=== PATIENT | male | born 1955 | race Caucasian/White ===

== ENCOUNTER 2021-07-11 17:37 | Inpatient (IN) | payer MEDICARE, OTHER ==
[~2021-07-11] VITALS: Ht 180.3 cm; Wt 68.5 kg
[2021-07-11] MEDS ORDERED: ASPI81TA31 PO (17:55)
[2021-07-11] MEDS ORDERED: METF-440 PO (17:55)
[2021-07-11] MEDS ORDERED: ATOR40TA PO (17:55)
[2021-07-11] MEDS ORDERED: MULT-594 PO (17:55)
[2021-07-11] MEDS ORDERED: BENA40TA8 PO (17:55)
[2021-07-11] MEDS ORDERED: METF-442 PO (17:55)
[2021-07-11] MEDS ORDERED: ACCUCHECK (17:55)
[2021-07-11] MEDS ORDERED: SITA100T PO (17:55)
--- NOTE | 2021-07-11 17:59 | NUR ---
Patient is eating dinner with good appetite. Patient is now medically cleared by Dr Lobo for psych admission to geriatric mental health unit.
--- NOTE | 2021-07-11 18:15 | NUR ---
Gps/Supervisor Fine Grading-Received report received from Kimmie CANALES Rn will have patient eat dinner in ER before bringing patient over MHU
[2021-07-12] MEDS ORDERED: TEMAZEPAM 7.5 MG CAPSULE PO PRN (03:15)
[2021-07-12] MEDS ORDERED: MAGNESIUM HYDROXIDE 30 ML LIQUID UDC PO PRN (03:15)
[2021-07-12] MEDS ORDERED: MAG HYDROX/AL HYDROX/SIMETH 30 ML LIQUID UDC PO PRN (03:15)
[2021-07-12] MEDS: ACETAMINOPHEN 325 MG TABLET PO PRN (03:19)
--- NOTE | 2021-07-12 04:40 | NUR ---
ADMIT NOTE Patient is a 65 yr old male admitted from [facility] to [facility] for Danger to Self. Patient according to the hold was placed on a 5150 by officers called to the scene for having a knife to his neck and verbalizing suicidal ideation, asking officers to shoot him upon exiting his home. Patient has a history of Major depression, Diabetes Mellitus, Hypertension, CKD. Alert and oriented to name, time, situation however has poor insight into current condition and stated he does not belong here, that he should be by now. Patient denies suicidal thoughts or intent at this time placed on 15 minute checks times twenty-four hours for moderate risk, plan of care in place as well as safety measures and suicidal precautions. Patient rights handbook provided.
[2021-07-12 07:30] VITALS: BP 116/59
[2021-07-12 07:31] LABS: BILIRUBIN,TOTAL 0.8 mg/dL (0.2-1.0); TOTAL PROTEIN, SERUM 8.1 g/dL (6.4-8.2)
--- NOTE | 2021-07-12 10:30 | NUR ---
PT RECEIVED AMBULATING UNIT HALLWAY. PLEASANT UPON APPROACH AND COMPLIANT WITH CARE. PT ADMITS TO FEELINGS OF DEPRESSION, BUT DENIES SUICIDAL IDEATIONS AT THIS TIME. THERAPEUTIC COMMUNICATION PROVIDED.
[2021-07-12] MEDS: SERTRALINE HCL 50 MG TABLET PO SCH (13:02)
[2021-07-12 16:46] VITALS: BP 140/64
[2021-07-12] MEDS: QUETIAPINE FUMARATE 25 MG TABLET PO SCH (20:19)
[2021-07-12 20:34] VITALS: BP 131/81
--- NOTE | 2021-07-13 07:36 | NUR ---
Patient approached the nursing station stating he was feeling suicidal and had made attempts to snort paper. Psychiatrist was paged, awaiting call back, endorsed to a.m. nurse to follow up. Patient then proceeded to bang his head against the wall, required nursing interventions to have him sit down in a shwetha-chair by the nursing station for observation.
--- NOTE | 2021-07-13 07:57 | NUR ---
PT NOTED VERY DEPRESSED THIS MORNING. STATED HE "TRIED TO KILL MYSELF WITH SOME PAPER" IN ORDER TO SUFFOCATE HIMSELF. STATES HE WANTS TO AND "WILL DO IT AGAIN UNTIL I MAKE IT." WHEN ASKED WHAT IS MAKING HIM FEEL LIKE HE WANTS TO HURT HIMSELF, PT RESPONDED "JUST BEING ALIVE MAKES ME DEPRESSED. I JUST WANT TO ." FREQUENT VISUAL MONITORING DONE. CALLED DR. CHIANG AWAITING CALL BACK.
--- NOTE | 2021-07-13 08:18 | NUR ---
SPOKE TO DR. CHIANG WITH ORDER FOR 1:1 SITTER FOR SAFETY. PT CONTINUES TO VERBALIZE SUICIDAL IDEATIONS, SAYING "I'M REALLY NOT GONNA LEAVE THIS PLACE ALIVE, YOU KNOW?" [employer]LECT[employer]ODU[employer] SALES ENGINEER MADE AWARE.
--- NOTE | 2021-07-13 10:58 | NUR ---
Pt. verbalizes SI with no specific plan. Pt. affect is hopeless, helpless, depressed. Dr. Patton is aware of patient suicidal ideations, order 1:1 sitter was placed.
--- NOTE | 2021-07-13 11:53 | NUR ---
SW Note Pt presents with appropriate affect and depressed mood. Pt is agitated and guarded during assessment. Pt is able to maintain meaningful conversation. Pt states the reason for his hospitalization is that he tried to kill himself due to stress related to conflict with his neighbor and difficulty obtaining medication refills at his pharmacy. Pt explained his stressors built up and caused him to want to end his life. Pt reports feelings of hopelessness and worthlessness. Pt reflects that killing himself was "not that good idea." Pt explains he is "three-quarters dark and one-quater light" explaining he is still having thoughts of wanting to . Pt elaborates he is "three-quarters" still feeling like he wants to and "one-quarter" sees reasons to continue living. Pt continues to report thoughts of suicide and denies any current intent or plan at this time. Pt initially declined counseling resources or psychiatrist referrals and later agreed to referrals. Pt appears disheveled and unkempt. Pt denies ETOH use. Pt denies visual/auditory hallucinations.
--- NOTE | 2021-07-13 11:59 | NUR ---
CANDIDO Initial Discharge Note Pt currently resides at home at [address], [address], [place] [address] ([phone]). Pt reports he wants to return home after discharge. Pt reports he is estranged from his siblings and do not want him to know about his hospitalization or be involved in his care. CANDIDO will continue to work [facility] pt and MD to ensure a safe and proper discharge plan.
[2021-07-13] MEDS: SERTRALINE HCL 50 MG TABLET PO SCH (12:12)
--- NOTE | 2021-07-13 14:06 | NUR ---
Pt. is [id number] awake in his room. A/O X 3 to person, place, environment. Pt. affect is hopeless, helpless, depressed, low energy. Pt. verbalizes suicidal thoughts with no specific plan "I don't want to live anymore. I'm done." Pt. ambulates with walker. Continent of bladder and bowel. Pt. is encourage to verbalize feelings and emotions. Fall and safety precautions implemented.
[2021-07-13 15:47] VITALS: BP 139/74
--- NOTE | 2021-07-13 16:13 | NUR ---
REASSESSED PT AT THIS TIME. CONTINUES TO VERBALIZE THAT HE HAS "NOTHING TO LIVE FOR", BUT REGRETS TRYING TO KILL HIMSELF THIS AM. PT STATES HE WILL "TRY" NOT DO HURT HIMSELF AGAIN, BUT HE "CAN'T MAKE ANY PROMISES" AND CANNOT FULLY CONTRACT FOR SAFETY AT THIS TIME. WILL CONTINUE TO MONITOR. CONTINUES TO BE PLEASANT AND COMPLIANT WITH MEDICATIONS AND CARE.
[2021-07-13] MEDS: METFORMIN HCL 500 MG TABLET PO SCH (17:37)
[2021-07-13 20:00] VITALS: BP 142/84
[2021-07-13] MEDS: ATORVASTATIN 10 MG TABLET PO SCH (20:07)
[2021-07-13] MEDS: QUETIAPINE FUMARATE 25 MG TABLET PO SCH (20:08)
[2021-07-14] MEDS: ACETAMINOPHEN 325 MG TABLET PO PRN (05:39)
--- NOTE | 2021-07-14 06:14 | NUR ---
Pt asleep at this time, no s/s of distress. 1:1 sitter at bedside. Compliant with meds, cooperative with care during the shift. 14-day hold signed by Dr. Patton, copy provided to pt. Said doctor recommended d/c of sitter at the end of this shift. Observed to be easily agitated and anxious but redirectable. Overall pleasant and able to interact appropriately with others. Denies wanting to hurt himself at this time. Will continue to monitor. Safety precautions remain in place.
[2021-07-14 07:38] VITALS: BP 123/76
--- NOTE | 2021-07-14 08:00 | NUR ---
rec d patient in bed arousable to verbal stimuli no anger issues noted 1;1 sitters d/c d.P{atient sat up At bedside for breakfast, oral intake qs. med compliant. Up in halls with fww for safety gait steady no outbursts
[2021-07-14] MEDS: METFORMIN HCL 500 MG TABLET PO SCH ×2 (08:34→16:52)
[2021-07-14] MEDS: MULTIVITAMINS,THERAPEUTIC TABLET PO SCH (08:34)
[2021-07-14] MEDS: SERTRALINE HCL 50 MG TABLET PO SCH (08:34)
[2021-07-14] MEDS: ASPIRIN 81 MG TAB.CHEW PO SCH (08:34)
[2021-07-14] MEDS: BENAZEPRIL HCL 10 MG TABLET PO SCH (08:36)
[2021-07-14] MEDS: GLUCERNA SHAKE VANILLA 237 ML CAN PO SCH ×2 (10:33→16:53)
[2021-07-14 15:59] VITALS: BP 129/67
--- NOTE | 2021-07-14 18:14 | NUR ---
patient has been visible on unit with no peer interaction back and forth to his room, njo s/s of hypo glycemia. denies SI . cONTINUE TO MONITOR FOR SAFETY.
[2021-07-14 20:10] VITALS: BP 142/58
[2021-07-14] MEDS: LORAZEPAM 0.5 MG TABLET PO PRN (20:43)
[2021-07-14] MEDS: ATORVASTATIN 10 MG TABLET PO SCH (20:43)
[2021-07-14] MEDS: QUETIAPINE FUMARATE 25 MG TABLET PO SCH (20:43)
[2021-07-15 08:00] VITALS: BP 135/72
--- NOTE | 2021-07-15 08:00 | NUR ---
patient received awake and oriented times two still forgetful and confused.Patient pacing noble s with fFWW in and out of his room, med compliant oral intake good. Continue to monitor for safety
[2021-07-15] MEDS: GLUCERNA SHAKE VANILLA 237 ML CAN PO SCH ×2 (09:00→17:34)
[2021-07-15] MEDS: BENAZEPRIL HCL 10 MG TABLET PO SCH (09:28)
[2021-07-15] MEDS: ASPIRIN 81 MG TAB.CHEW PO SCH (09:28)
[2021-07-15] MEDS: MULTIVITAMINS,THERAPEUTIC TABLET PO SCH (09:29)
[2021-07-15] MEDS: SERTRALINE HCL 50 MG TABLET PO SCH (09:29)
[2021-07-15] MEDS: METFORMIN HCL 500 MG TABLET PO SCH ×2 (09:32→17:33)
--- NOTE | 2021-07-15 15:29 | NUR ---
Firearms Report: Pesticide Use Medical Coordinator completed and submitted a [employer] firearms report for 5150 danger to self certifications. A copy of report has been placed in patient chart.
[2021-07-15 15:59] VITALS: BP 128/81
--- NOTE | 2021-07-15 18:31 | NUR ---
STILL RESISTIVE MEDICATION IN AND OUT OF DAY ROOM NO si or c/o harm to anyone
[2021-07-15 19:58] VITALS: BP 131/63
[2021-07-15] MEDS: QUETIAPINE FUMARATE 25 MG TABLET PO SCH (20:32)
[2021-07-15] MEDS: ATORVASTATIN 10 MG TABLET PO SCH (20:32)
[2021-07-16 08:00] VITALS: BP 125/72
[2021-07-16 08:33] LABS: HEMATOCRIT 42.5 % (36.7-47.1); MEAN CORPUSCULAR HEMOGLOBIN 33.7 uug (23.8-33.4); PLATELET COUNT (AUTO) 232 K/uL (152-348)
[2021-07-16] MEDS: BENAZEPRIL HCL 10 MG TABLET PO SCH (08:33)
[2021-07-16] MEDS: MULTIVITAMINS,THERAPEUTIC TABLET PO SCH (08:34)
[2021-07-16] MEDS: SERTRALINE HCL 50 MG TABLET PO SCH (08:34)
[2021-07-16] MEDS: METFORMIN HCL 500 MG TABLET PO SCH ×2 (08:34→18:27)
[2021-07-16] MEDS: ASPIRIN 81 MG TAB.CHEW PO SCH (08:34)
[2021-07-16 08:42] LABS: CREATININE 0.8 mg/dL (0.6-1.3); PHOSPHOROUS 2.9 mg/dL (2.5-4.9); POTASSIUM 4.7 mmol/L (3.5-5.1)
[2021-07-16] MEDS: GLUCERNA SHAKE VANILLA 237 ML CAN PO SCH ×2 (08:46→17:44)
[2021-07-16] MEDS ORDERED: KETOROLAC TROMETHAMINE 10 MG TABLET PO ONE (12:00)
[2021-07-16 16:02] VITALS: BP 129/64
--- NOTE | 2021-07-16 16:18 | NUR ---
Pt. A/O X 2 to person, place. Pt. affect is friendly, pleasant, cooperative. Ambulates independently. Compliant with medications. Pt. is encourage to verbalize concerns. Fall and safety precautions implemented.
[2021-07-16] MEDS: ATORVASTATIN 10 MG TABLET PO SCH (20:10)
[2021-07-16] MEDS: QUETIAPINE FUMARATE 25 MG TABLET PO SCH (20:10)
--- NOTE | 2021-07-16 20:30 | NUR ---
RECEIVED PATIENT IN THE DAY ROOM, HE IS NOTED A/O X 2 TO 3. HE IS ABLE TO AMBULATE WITH STEADY GAIT AND ABLE TO VERBALIZED FEELINGS. HE DENIED SI OR ANY PLANS TO HARM SELF. DENIAL IS CONVINCING. PO FLUIDS AND SNACKS WERE GIVEN. V/S STABLE. HE IS REASSURED FOR HIS SAFETY. SAFETY AND FALL PRECAUTION IN PLACE. WILL CONTINUE TO MONITOR.
[2021-07-17 07:30] VITALS: BP 134/71
[2021-07-17] MEDS: GLUCERNA SHAKE VANILLA 237 ML CAN PO SCH ×2 (09:37→17:52)
[2021-07-17] MEDS: ASPIRIN 81 MG TAB.CHEW PO SCH (11:20)
[2021-07-17] MEDS: METFORMIN HCL 500 MG TABLET PO SCH ×2 (11:20→17:11)
[2021-07-17] MEDS: BENAZEPRIL HCL 10 MG TABLET PO SCH (11:21)
[2021-07-17] MEDS: MULTIVITAMINS,THERAPEUTIC TABLET PO SCH (11:21)
[2021-07-17] MEDS: SERTRALINE HCL 50 MG TABLET PO SCH (13:21)
[2021-07-17 16:00] VITALS: BP 135/69
--- NOTE | 2021-07-17 16:29 | NUR ---
PROBABLE CAUSE HEARING: Patient's probable cause hearing was held today for the 5250 hold. 5250 hold was upheld for GD and DTS. Patient notified because he refused to attend hearing.
--- NOTE | 2021-07-17 17:20 | NUR ---
Patient is alert and oriented. Patient is anxious, restless, guarded, attention seeking, and intrusive. Patient states that he feels hopeless and helpless, that he feels like his life is not worth continuing and that he feels like he has no value and would be better off . Patient denies concrete plan, states that the SI is fleeting thoughts, and is able to contract for safety. Patient is compliant with medications, no adverse reactions noted. Patient is able to ambulate independently with a FWW. patient is able to perform self care and ADL's independently. Patient is encouraged to participate in unit groups and therapeutic milieu, educated about impulse control and communicating needs to staff appropriately.
[2021-07-17] MEDS: ATORVASTATIN 10 MG TABLET PO SCH (20:04)
[2021-07-17 20:18] VITALS: BP 141/67
[2021-07-17] MEDS ORDERED: QUETIAPINE FUMARATE 25 MG TABLET PO SCH (21:00)
[2021-07-18 07:30] VITALS: BP 135/70
[2021-07-18] MEDS: GLUCERNA SHAKE VANILLA 237 ML CAN PO SCH ×2 (08:00→17:00)
[2021-07-18] MEDS: BENAZEPRIL HCL 10 MG TABLET PO SCH (09:21)
[2021-07-18] MEDS: MULTIVITAMINS,THERAPEUTIC TABLET PO SCH (09:21)
[2021-07-18] MEDS: ASPIRIN 81 MG TAB.CHEW PO SCH (09:21)
[2021-07-18] MEDS: METFORMIN HCL 500 MG TABLET PO SCH ×2 (09:27→19:15)
[2021-07-18] MEDS: SERTRALINE HCL 50 MG TABLET PO SCH ×2 (09:27→12:18)
[2021-07-18] MEDS: ACETAMINOPHEN 325 MG TABLET PO PRN (12:18)
--- NOTE | 2021-07-18 15:12 | NUR ---
Discharge Plan Update faxed patient's referral packet to [facility] [address] [place] [address] (phone: [phone]; fax: [phone]) attention to Michelle for review.
--- NOTE | 2021-07-18 16:39 | NUR ---
CANDIDO Care Coordination Note CANDIDO assisted pt in calling [facility] ([phone]) to speak with estimator paperboard boxes Marlena Silva. Marlena unavailable and out of office until Thursday07/22/21. Spoke with Prasanna, flight operations specialist, who informed pt can be out of his home up to 120 days in most cases. Call was forwarded to Marlena's voicemail at extension [phone] where pt left a voicemail.
[2021-07-18 16:59] VITALS: BP 118/54
[2021-07-18 20:18] VITALS: BP 125/60
[2021-07-18] MEDS: ATORVASTATIN 10 MG TABLET PO SCH (20:39)
[2021-07-18] MEDS: LORAZEPAM 0.5 MG TABLET PO PRN (20:39)
[2021-07-18] MEDS ORDERED: QUETIAPINE FUMARATE 25 MG TABLET PO SCH (21:00)
--- NOTE | 2021-07-19 06:30 | NUR ---
Received patient in room last night. Isolative and not wanting to engage in any meaningful conversation at that time. Patient did however made a contract for safety with this medical technical writer and denied having SI. This am , the patient was willing to take a shower and seemed less anxious. Continuing to monitor for safety and depression.
[2021-07-19 07:30] VITALS: BP 136/66
[2021-07-19] MEDS: GLUCERNA SHAKE VANILLA 237 ML CAN PO SCH ×2 (08:00→17:43)
[2021-07-19] MEDS: METFORMIN HCL 500 MG TABLET PO SCH ×2 (09:07→17:42)
[2021-07-19] MEDS: SERTRALINE HCL 50 MG TABLET PO SCH ×2 (09:07→12:29)
[2021-07-19] MEDS: MULTIVITAMINS,THERAPEUTIC TABLET PO SCH (09:07)
[2021-07-19] MEDS: ASPIRIN 81 MG TAB.CHEW PO SCH (09:07)
[2021-07-19] MEDS: BENAZEPRIL HCL 10 MG TABLET PO SCH (09:10)
[2021-07-19 16:28] VITALS: BP 119/63
[2021-07-19] MEDS: ATORVASTATIN 10 MG TABLET PO SCH (20:36)
[2021-07-19] MEDS: QUETIAPINE FUMARATE 100 MG TABLET PO SCH (20:36)
[2021-07-19 20:41] VITALS: BP 120/65
[2021-07-19] MEDS: LORAZEPAM 0.5 MG TABLET PO PRN (21:03)
[2021-07-20 07:30] VITALS: BP 111/69
[2021-07-20] MEDS: METFORMIN HCL 500 MG TABLET PO SCH ×2 (08:49→17:17)
[2021-07-20] MEDS: SERTRALINE HCL 50 MG TABLET PO SCH ×2 (08:49→13:00)
[2021-07-20] MEDS: BENAZEPRIL HCL 10 MG TABLET PO SCH (08:50)
[2021-07-20] MEDS: ASPIRIN 81 MG TAB.CHEW PO SCH (08:50)
[2021-07-20] MEDS: MULTIVITAMINS,THERAPEUTIC TABLET PO SCH (08:50)
[2021-07-20] MEDS: GLUCERNA SHAKE VANILLA 237 ML CAN PO SCH ×2 (08:53→17:18)
[2021-07-20 16:00] VITALS: BP 119/65
[2021-07-20 20:00] VITALS: BP 134/59
[2021-07-20] MEDS: ATORVASTATIN 10 MG TABLET PO SCH (20:53)
[2021-07-20] MEDS: QUETIAPINE FUMARATE 100 MG TABLET PO SCH (20:53)
[2021-07-20] MEDS: LORAZEPAM 0.5 MG TABLET PO PRN (20:53)
[2021-07-21] MEDS: LORAZEPAM 0.5 MG TABLET PO PRN (08:01)
[2021-07-21] MEDS: MULTIVITAMINS,THERAPEUTIC TABLET PO SCH (08:01)
[2021-07-21] MEDS: GLUCERNA SHAKE VANILLA 237 ML CAN PO SCH ×2 (08:01→17:02)
[2021-07-21] MEDS: METFORMIN HCL 500 MG TABLET PO SCH ×2 (08:01→17:01)
[2021-07-21] MEDS: SERTRALINE HCL 50 MG TABLET PO SCH ×2 (08:01→12:38)
[2021-07-21] MEDS: ASPIRIN 81 MG TAB.CHEW PO SCH (08:01)
[2021-07-21 08:29] VITALS: BP 120/65
[2021-07-21] MEDS: BENAZEPRIL HCL 10 MG TABLET PO SCH (09:00)
[2021-07-21 16:10] VITALS: BP 130/68
[2021-07-21 20:30] VITALS: BP 104/65
[2021-07-21] MEDS: ATORVASTATIN 10 MG TABLET PO SCH (20:51)
[2021-07-21] MEDS: QUETIAPINE FUMARATE 100 MG TABLET PO SCH (20:51)
[2021-07-22 07:39] VITALS: BP 129/65
[2021-07-22] MEDS: SERTRALINE HCL 50 MG TABLET PO SCH ×2 (09:04→13:55)
[2021-07-22] MEDS: GLUCERNA SHAKE VANILLA 237 ML CAN PO SCH ×2 (09:05→17:30)
[2021-07-22] MEDS: METFORMIN HCL 500 MG TABLET PO SCH ×2 (09:05→17:30)
[2021-07-22] MEDS: ASPIRIN 81 MG TAB.CHEW PO SCH (09:05)
[2021-07-22] MEDS: BENAZEPRIL HCL 10 MG TABLET PO SCH (09:05)
[2021-07-22] MEDS: MULTIVITAMINS,THERAPEUTIC TABLET PO SCH (09:05)
[2021-07-22] MEDS: QUETIAPINE FUMARATE 25 MG TABLET PO SCH ×2 (13:55→17:29)
[2021-07-22 16:23] VITALS: BP 108/60
[2021-07-22 20:19] VITALS: BP 122/56
[2021-07-22] MEDS: QUETIAPINE FUMARATE 100 MG TABLET PO SCH (21:05)
[2021-07-22] MEDS: ATORVASTATIN 10 MG TABLET PO SCH (21:05)
[2021-07-23 08:11] VITALS: BP 113/54
[2021-07-23] MEDS: ASPIRIN 81 MG TAB.CHEW PO SCH (08:41)
[2021-07-23] MEDS: QUETIAPINE FUMARATE 25 MG TABLET PO SCH ×3 (08:41→16:48)
[2021-07-23] MEDS: MULTIVITAMINS,THERAPEUTIC TABLET PO SCH (08:42)
[2021-07-23] MEDS: SERTRALINE HCL 50 MG TABLET PO SCH ×2 (08:42→13:13)
[2021-07-23] MEDS: METFORMIN HCL 500 MG TABLET PO SCH ×2 (08:42→17:02)
[2021-07-23] MEDS: BENAZEPRIL HCL 10 MG TABLET PO SCH (08:42)
[2021-07-23] MEDS: GLUCERNA SHAKE VANILLA 237 ML CAN PO SCH ×2 (08:43→16:49)
--- NOTE | 2021-07-23 14:17 | NUR ---
SW Discharge Plan Update CANDIDO spoke with Radha, research program coordinator at [address] [address] (phone: [phone]; fax: [phone]), who informed pt has been accepted at the facility when he is ready for discharge.
--- NOTE | 2021-07-23 15:23 | NUR ---
CANDIDO Care Coordination Note Received voice message from Marlena Silva, pain management specialist with [facility] ([phone]), requesting call back from patient and requesting letter informing of pt's admission and discharge date. Pt spoke with Marlena via telephone. CANDIDO faxed letter to Marlena at [phone] informing of pt's admission at [facility] and projected discharge date 07/25/21.
[2021-07-23 16:36] VITALS: BP 143/53
[2021-07-23] MEDS: QUETIAPINE FUMARATE 100 MG TABLET PO SCH (20:31)
[2021-07-23] MEDS: ATORVASTATIN 10 MG TABLET PO SCH (20:31)
[2021-07-23 21:53] VITALS: BP 122/69
--- NOTE | 2021-07-24 06:45 | NUR ---
Pt anxious and guarded. Able to ambulate with FWW. All medications given as ordered. Denies SI or HI. Safety provided. Will endorse to day shift.
[2021-07-24 07:30] VITALS: BP 122/69
[2021-07-24] MEDS: SERTRALINE HCL 50 MG TABLET PO SCH ×2 (08:13→12:29)
[2021-07-24] MEDS: BENAZEPRIL HCL 10 MG TABLET PO SCH (08:13)
[2021-07-24] MEDS: QUETIAPINE FUMARATE 25 MG TABLET PO SCH ×3 (08:14→16:23)
[2021-07-24] MEDS: ASPIRIN 81 MG TAB.CHEW PO SCH (08:14)
[2021-07-24] MEDS: MULTIVITAMINS,THERAPEUTIC TABLET PO SCH (08:14)
[2021-07-24] MEDS: METFORMIN HCL 500 MG TABLET PO SCH ×2 (08:14→17:56)
[2021-07-24] MEDS: GLUCERNA SHAKE VANILLA 237 ML CAN PO SCH ×2 (08:17→17:48)
--- NOTE | 2021-07-24 15:06 | NUR ---
Pt. is received awake in his room. A/OX 3 to person, place. Pt. affect is anxious, cooperative, withdrawn, isolative at times. Compliant with medications. Self care. Ambulates without assistance. Continent of bladder and bowel. Active listening provided. Fall and safety precautiosn implemented.
--- NOTE | 2021-07-24 15:08 | NUR ---
Correction: Patient ambulates with a walker.
[2021-07-24 16:00] VITALS: BP 103/63
[2021-07-24 20:12] VITALS: BP 99/61
[2021-07-24] MEDS: ATORVASTATIN 10 MG TABLET PO SCH (21:23)
[2021-07-24] MEDS: QUETIAPINE FUMARATE 100 MG TABLET PO SCH (21:23)
[2021-07-25 07:30] VITALS: BP 121/64
[2021-07-25 08:25] VITALS: BP 121/64
[2021-07-25] MEDS: BENAZEPRIL HCL 10 MG TABLET PO SCH (08:25)
[2021-07-25] MEDS: METFORMIN HCL 500 MG TABLET PO SCH (08:25)
[2021-07-25] MEDS: GLUCERNA SHAKE VANILLA 237 ML CAN PO SCH (08:25)
[2021-07-25] MEDS: ASPIRIN 81 MG TAB.CHEW PO SCH (08:25)
[2021-07-25] MEDS: SERTRALINE HCL 50 MG TABLET PO SCH (08:25)
[2021-07-25] MEDS: MULTIVITAMINS,THERAPEUTIC TABLET PO SCH (08:25)
[2021-07-25] MEDS: QUETIAPINE FUMARATE 25 MG TABLET PO SCH (08:26)
--- NOTE | 2021-07-25 08:58 | NUR ---
CANDIDO Discharge Note Pt will be discharged to [facility] [place] [address] ([phone]) via Ambulance transportation at 11AM. CANDIDO spoke with Radha, admin coordinator at the facility, who states they are ready to accept the patient today. Pt is aware and agreeable with discharge plans. Pt is alert and oriented x4. Pt denies any suicidal or homicidal ideation. Pt will follow-up at the facility with Dr. Fields Psychiatrist and Dr. Page Health Science Writer. Pt was provided referral for [facility] located at [address] [place] [phone] ([phone]). Pt presents with calm mood and congruent affect.
--- NOTE | 2021-07-25 12:30 | NUR ---
Discharged patient via ambulance with 2 computer game programmer. report given to JOSE JUAN Alvarado of [facility]. Patient skin is intact. Denies suicidal or homicidal ideation. He is calm and compliant with meds. DC instructions given and signed. Belonging list signed and returned to the patient. No distress identified. all needs were attended and all due meds given.
== END 2021-07-25 12:30 | DRG 885 ==
LOC: ER 17:38 → GPS 18:08
PROVIDERS: ADMIT Psychiatry & Neurology Psychosomatic Medicine; ATTEND Internal Medicine
DX: F25.1 Schizoaffective disorder, depressive type (principal); R45.851 Suicidal ideations; I10 Essential (primary) hypertension; E11.9 Type 2 diabetes mellitus without complications; E78.5 Hyperlipidemia, unspecified; F09 Unspecified mental disorder due to known physiological condition; Z20.822 Contact with and (suspected) exposure to COVID-19; Z88.8 Allergy status to other drugs, medicaments and biological substances; F60.9 Personality disorder, unspecified
CPT/HCPCS: 36415; 83735; 84100; 85025; 97161; A4663